=== PATIENT | male | born 1950 | race Caucasian/White ===

== ENCOUNTER → 2020-05-15 | Outpatient (CLI) | payer MEDICARE ==
--- NOTE | 2020-05-15 11:19 | CARD ---
MR#: [id number] Date of Study: 05/15/2020 Ordering Physician: SEBASTIAN CADENA, Referring Physician: SEBASTIAN CADENA Tech: Yadira Jimenez RDCS APPROVED REPORT EXAM: Two-dimensional and M-mode echocardiogram with Doppler and color Doppler. Other Information Quality : Fair INDICATION Hypertension/HCVD Edema 2D DIMENSIONS Left Atrium(2D)3.9 (1.6-4.0cm)IVSd1.3 (0.7-1.1cm) Aortic Root(2D)3.1 (2.0-3.7cm)LVDd4.4 (3.9-5.9cm) LVOT Diameter2.1 (1.8-2.4cm)PWd1.2 (0.7-1.1cm) LVDs3.4 (2.5-4.0cm)FS (%) 22.0 % SV38.7 mlLVEF(%)50.0 (>50%) Aortic Valve AoV Peak Rajesh.143.4cm/sAoV VTI30.3cm AO Peak GR.8.2mmHgLVOT Peak Rajesh.108.3cm/s LVOT VTI 26.17cmAO Mean GR.4mmHg STEPHANIA (VMAX)2.15mu7EHO (VTI)3.04cm2 Mitral Valve MV E Bmgxbtnk364.5cm/sMV DECEL YZWV126df MV A Aojzkpwz03.9cm/sE/A Ratio1.3 Pulmonary Vein S1 Irfrjrrw36.3cm/sD2 Xuqlbjjr80.2cm/s LEFT VENTRICLE The left ventricle is normal size. There is mild concentric left ventricular hypertrophy. Left ventri chaparrita systolic function is normal. The Ejection Fraction is 55-60%. There is normal LV segmental wall m otion. Transmitral Doppler flow pattern is Grade II-pseudonormal filling dynamics. RIGHT VENTRICLE The right ventricle is normal size. The right ventricular systolic function is normal. ATRIA The left atrium size is normal. The right atrium size is normal. The interatrial septum is intact wit h no evidence for an atrial septal defect or patent foramen ovale as noted on 2-D or Doppler imaging. AORTIC VALVE The aortic valve is calcified but opens well. Doppler and Color Flow revealed no significant aortic r egurgitation. There is no significant aortic valvular stenosis. MITRAL VALVE The mitral valve is normal in structure and function. There is no evidence of mitral valve prolapse. There is no mitral valve stenosis. Doppler and Color-flow revealed trace mitral regurgitation. TRICUSPID VALVE The tricuspid valve is normal in structure and function. Doppler and Color Flow revealed no tricuspid valve regurgitation noted. There is no tricuspid valve stenosis. PULMONIC VALVE The pulmonic valve is not well visualized. Doppler and Color Flow revealed no pulmonic valvular regur gitation. There is no pulmonic valvular stenosis. GREAT VESSELS The aortic root is normal in size. The ascending aorta is normal in size. The IVC was not visualized. PERICARDIAL EFFUSION There is no evidence of significant pericardial effusion. Critical Notification Critical Value: No <Conclusion> Left ventricle systolic function is normal. The Ejection Fraction is 55-60%. There is normal LV segmental wall motion. Trace mitral regurgitation. There is no evidence of significant pericardial effusion. Signed by : Hubert Florian, Electronically Approved : 05/15/2020 11:18:48
== END | disposition home or self-care (01) ==
LOC: ECHO 09:44
PROVIDERS: ATTEND Family Medicine
DX: I35.1 Nonrheumatic aortic (valve) insufficiency (principal); I51.7 Cardiomegaly; I10 Essential (primary) hypertension; R60.9 Edema, unspecified
CPT/HCPCS: 93306

== ENCOUNTER 2021-06-09 12:04 | Emergency (ER) | payer MEDICARE ==
[~2021-06-09] VITALS: Ht 182.9 cm; Wt 131.7 kg
--- NOTE | 2021-06-09 12:21 | PHYS DOC ---
Adult General Chief Complaint Chief Complaint: MECHANICAL FALL HPI HPI Patient is a 70-year-old male who presents via EMS for a fall. Onset happened approximately 30 minutes prior to arrival. Patient reports he was walking at a grocery store pushing a cart when he missed a step trying to go down a curb subsequently falling on his right side. Reports he hit his right shoulder and right anterior head. No reported loss of consciousness, patient is not on any blood thinners. States he has continued motor or sensory neuro function but does admit focal pain to right shoulder at present. (FABIEN CAPPS DO) Review of Systems Review of Systems Fourteen body systems of review of systems have been reviewed. See HPI for pertinent positives and negative responses, other contreras all other systems are negative, non-pertinent or non-contributory (FABIEN CAPPS DO) Allergies Allergies Allergies Coded Allergies Type Severity Reaction Last Updated Verified No Known Drug Allergies 06/09/21 No (FABIEN CAPPS DO) Physical Exam Physical Exam Constitutional: Pt is oriented to person, place, and time. Pt appears age-appropriate, overweight and in no acute distress. He is diaphoretic HEENT: Head: Normocephalic with mild hematoma present to right anterior forehead External ears unremarkable without powell sign Conjunctivae and EOM are normal. Pupils are equal, round, and reactive to light. Oropharynx is clear and moist. No hematomas or lacerations or abrasions to face or scalp OP clear, no blood, no malocclusion, dentition intact Nares clear, no nasal septal hematoma Midface stable Neck: C-spine midline nontender, no step-offs Cardiovascular: Normal rate, regular rhythm and normal heart sounds. Pulmonary/Chest: Effort normal and breath sounds normal. No respiratory distress. No wheezes. CTA bilaterally Abdominal: Soft and protuberant. Bowel sounds are normal. Pt exhibits no distension. There is no tenderness. Musculoskeletal: Bony tenderness present to right shoulder with concerning deformity that is closed in nature but palpable and nonanatomic compared to contralateral limb with decreased range of motion globally due to pain. Tenderness present to lateral aspect of right elbow without pain during supination or pronation Chest wall stable Pelvis stable and non-tender No vertebral TTP and spine without stepoffs Neurological: Pt is alert and oriented to person, place, and time. Moving all extremities willfully, able to wiggle all fingers and toes Alert and oriented x 3 Motor and sensory function grossly intact No saddle anesthesia Cranial nerves II through XII intact Skin: Skin is warm and dry. No lacerations. Mild abrasion noted to right anterior knee, left forearm and right wrist Psychiatric: Behavior is appropriate for situation (FABIEN CAPPS DO) Current Patient Data Vital Signs Vital Signs Date Time Temp Pulse Resp B/P (MAP) Pulse Ox O2 Delivery O2 Flow Rate FiO2 06/09/21 13:04 20 97 Room Air 06/09/21 13:14 97.9 92 159/75 Vital Signs Date Time Temp Pulse Resp B/P (MAP) Pulse Ox O2 Delivery O2 Flow Rate FiO2 06/09/21 13:14 97.9 92 18 159/75 94 Room Air Lab Results Laboratory Tests Test 06/09/21 12:40 White Blood Count 13.1 x10^3/uL Red Blood Count 4.14 x10^6/uL Hemoglobin 13.6 g/dL Hematocrit 40.6 % Mean Corpuscular Volume 98 fL Mean Corpuscular Hemoglobin 33 pg Mean Corpuscular Hemoglobin Concent 33 g/dL Red Cell Distribution Width 14.2 % Platelet Count 245 x10^3/uL Neutrophils (%) (Auto) 80 % Lymphocytes (%) (Auto) 13 % Monocytes (%) (Auto) 6 % Eosinophils (%) (Auto) 1 % Basophils (%) (Auto) 0 % Neutrophils # (Auto) 10.4 x10^3uL Lymphocytes # (Auto) 1.6 x10^3/uL Monocytes # (Auto) 0.8 x10^3/uL Eosinophils # (Auto) 0.2 x10^3/uL Basophils # (Auto) 0.0 x10^3/uL Sodium Level 140 mmol/L Potassium Level 4.1 mmol/L Chloride Level 104 mmol/L Carbon Dioxide Level 24 mmol/L Anion Gap 12 Blood Urea Nitrogen 18 mg/dL Creatinine 0.5 mg/dL Estimated GFR (Cockcroft-Gault) 163.9 Glucose Level 124 mg/dL Calcium Level 8.7 mg/dL Troponin I Quantitative < 0.017 ng/mL Current Medications Medications (Trade) Dose Ordered Sig/Radha Route PRN Reason Start Time Stop Time Status Last Admin Dose Admin Fentanyl Citrate (Fentanyl 2ml Vial) 100 mcg STK-MED ONCE .ROUTE 06/09/21 12:21 06/09/21 12:21 DC Fentanyl Citrate (Fentanyl 2ml Vial) 75 mcg 1X ONCE IVP 06/09/21 12:30 06/09/21 12:39 DC 06/09/21 13:04 (FABIEN CAPPS DO) EKG EKG EKG ordered and interpreted by myself at 1331 hrs. is sinus rhythm at 65 bpm, unremarkable intervals, no axis deviation, no acute ischemic findings, no STEMI (FABIEN CAPPS DO) Radiology/Procedures Radiology/Procedures Right elbow 3 views, right shoulder 2 views. HISTORY: Fall, right shoulder pain Right shoulder shoulder 3 views were taken of the right shoulder. There is a comminuted displaced fracture of the proximal humerus. There is displacement of the humeral head relative to the shaft of the humerus. There is comminution at the greater tuberosity. Right elbow Additional view was taken of the humerus to include the elbow in the oblique projection, an AP view was taken of the elbow. A true lateral view the elbow was not obtained. There is no obvious distal humerus or elbow fracture but the study is limited. IMPRESSION: 1. Limited views of the elbow show no definite fracture, additional views of be needed for complete evaluation. 2. Comminuted displaced proximal humerus fracture. Electronically signed by: Sky Cueva MD (06/09/2021 1:31 PM) [id number] /////////////////////// Examination: CT head and cervical spine without contrast CT head [facility] CT HEAD INDICATION: Reason: FALL TO ANTERIOR RIGHT HEAD / Spl. Instructions: / History: COMPARISON: None Available. Exposure: One or more of the following individualized dose reduction techniques were utilized for this examination: 1. Automated exposure control 2. Adjustment of the mA and/or kV according to patient size 3. Use of iterative reconstruction technique TECHNIQUE: 5 mm contiguous axial images were obtained from the skull base to the vertex in both bone and soft tissue algorithm. FINDINGS: Mild soft tissue swelling or scalp contusion identified in the right lateral frontal region. There is questionable faint hyperdensity identified in the right temporal lobe, best visualized on series 2 image 10 most likely artifact and less likely subtle subarachnoid bleed. No mass effect or midline shift. Ventricular size is appropriate. Basal cisterns are patent. No fractures identified.Byrne-white differentiation is preserved.Globes and orbit s are within normal limits. Paranasal sinuses and mastoid air cells are clear. CT CERVICAL SPINE INDICATION: Reason: FALL TO ANTERIOR RIGHT HEAD / Spl. Instructions: / History: COMPARISON: None Available. Technique: 2.5 mm contiguous axial images were obtained from the skull base through the cervicothoracic junction in both bone and soft tissue algorithm. Additional sagittal and coronal reconstructions were also performed. FINDINGS: Vertebral body height and alignment are maintained. Cervical lordosis is preserved. The lateral masses of C1 are aligned upon C2. No fractures identified. The bony canal is patent throughout. Moderate intervertebral disc height loss identified in the cervical spine throughout likely degenerative changes. The paraspinous soft tissues are unremarkable. Visualized intracranial contents are unremarkable. Lung apices are clear. IMPRESSION: 1. There is questionable faint hyperdensity identified in the right temporal lobe, most likely artifact and less likely subtle subarachnoid bleed. Follow-up CT in 6-12 hours can be considered. 2. Mild soft tissue swelling or scalp contusion identified in the right lateral frontal region. 3. No acute fracture of the cervical spine. 4. Moderate degenerative changes cervical spine. Electronically signed by: Simeon Larkin MD (06/09/2021 1:56 PM) CRAD2 (FABIEN CAPPS DO) Radiology/Procedures CT head without contrast and CTA head and neck with contrast dated 06/09/2021 Comparison: none CLINICAL INDICATION: Pain after fall Technique: Contiguous axial imaging the head was performed from skull base to vertex with out contrast administration. Subsequently, a CTA of the head and neck was acquired following the intravenous administration of 75 cc Omnipaque 350. Thin cut coronal and sagittal MIPS reconstructions and 3-D rotational reconstruction. One or more of the following individualized dose reduction techniques were utilized for this examination: 1. Automated exposure control 2. Adjustment of the mA and/or kV according to patient size 3. Use of iterative reconstruction technique. Carotid Stenosis calculations for CT, MR, and conventional angiography are based upon measurements of the distal ICA diameter in accordance with the NASCET m ethodology. Stenosis calculations for carotid ultrasound studies are derived from validated velocity criteria which are known to correlate with the NASCET methodology. FINDINGS: Study is somewhat limited due to diminished contrast bolus and mottle artifact. Aortic arch is normal in caliber. The left vertebral artery originates directly from the aortic arch. Subclavian arteries are patent. Bilateral vertebral arteries are grossly patent. The left vertebral is somewhat hypoplastic relative to the right side. No intimal flap or focal stenosis. Intradural vertebral arteries are patent. Basilar artery is well formed. Bilateral CHIN STRAP SEWER are patent. Patent posterior communicating arteries. Bilateral common carotid arteries are patent. There is moderate calcific plaque at the left carotid bifurcation resulting in mild narrowing, estimated at 40-50% stenosis. No significant narrowing on the right. The internal carotid arteries are otherwise patent to the skull base. The petrous and cavernous internal carotids are grossly patent. There is calcific plaque of the bilateral cavernous segments. Resultant mild to moderate narrowing of the bilateral cavernous and supraclinoid ICAs with estimated 50% narrowing bilaterally. The PATIENCE and MCA branches are patent. Patent anterior c ommunicating artery. No MCA branch vessel occlusion. Postcontrast imaging the brain shows no abnormal enhancement. Dural venous sinuses are grossly patent. Visualized soft tissue structures are unremarkable. Images of lung apices show mild emphysema. Bone windows show no acute findings. Multilevel spondylosis. IMPRESSION: 1. No acute abnormality. No evidence of dissection or branch vessel occlusion. 2. No evidence of hemodynamically significant stenosis or aneurysm. There is estimated 40-50% stenosis of the proximal left ICA. There is also estimated at 50% narrowing of the bilateral supraclinoid ICA. Electronically signed by: Ted Borjas MD (06/09/2021 8:40 PM) [facility] (MARKO BURNS MD) Heart Score C/O Chest Pain: No HEART Score for Chest Pain: HEART Score for Chest Pain Response (Comments) Value History Slighlty/Non-Suspicious 0 ECG Nonspecific Repolarizatio 1 Age > 65 2 Risk Factors >3 Risk Factors or Hx CAD 2 Troponin < Normal Limit 0 Total 5 Risk Factors: Risk Factors: DM, Current or recent (<one month) smoker, HTN, HLP, family history of CAD, obesity. Risk Scores: Risk Factors: DM, Current or recent (<one month) smoker, HTN, HLP, family history of CAD, obesity. (FABIEN CAPPS DO) Course & Med Decision Making Course & Med Decision Making Vitals stable. HPI, physical examination and comprehensive ER work-up concerning for closed right humeral fracture and suspect subarachnoid bleed versus right temporal hematoma. Due to COVID-[address] patient in hospital for admission. As such, frequent neuro checks were performed while patient was in ER with no change in mentation. Patient's right upper extremity was put in a Velcro immobilizer with instructions for close outpatient follow-up. Patient pending repeat CT head scan approximately 6 hours after initial to analyze potential subarachnoid versus artifact seen on initial scan. Comprehensive signout given to off going physician. Please refer to their documentation regarding future care of patient Critical Care Time This patient required critical care. Due to the fact that the patient required a significant amount of one on one physician - patient contact time, ordering and review of studies, arranging urgent treatment with development of a management plan, evaluation of patients response to treatment with frequent reassessments, and discussions with other providers this patient required 35 minutes of critical care time. Critical care time was indicated due to the inherent instability and/or potential for instability in this patient. The critical care time that is allocated to this patient is above and beyond any time spent on any other billable procedures performed on this patient. (FABIEN CAPPS DO) Course & Med Decision Making Patient care handed off to me at checkout pending imaging. Repeat head CT/CTA o f the head and neck without acute hemorrhage or mass. Elbow with findings suspicious for radial neck fracture. Comminuted displaced proximal humerus fracture. Patient placed in a double sugar tong splint and shoulder immobilizer. Patient alert and oriented in no acute distress. Vital signs normal. Pain controlled. Discussed all findings with family and recommended pain management at home. Given contact information for [facility] orthopedic group and advised to call very first thing in the morning to set up a immediate follow-up visit for surgical evaluation and treatment plans. Advised to follow-up with primary care physician as well. Gave strict return precautions to the emergency department. Family grateful, verbalized understanding and agreed with plan of discharge. (MARKO BURNS MD) Dragon Disclaimer Dragon Disclaimer This electronic medical record was generated, in whole or in part, using a voice recognition dictation system. (FABIEN CAPPS DO) Departure Departure: Impression: Primary Impression: Closed right humeral fracture Additional Impressions: Closed head injury without loss of consciousness Radial neck fracture Disposition: HOME / SELF CARE / HOMELESS Condition: STABLE Referrals: SEBASTIAN CADENA MD (PCP) AKOSUA VAZQUEZ MD Patient Instructions: Head Injury, Adult, Humerus Fracture, Treated with Immobilization Additional Instructions: As discussed prior to ER departure, you were seen for a fall and subsequently suffered a right arm fracture and injury to your head. Tomorrow, you need to contact Dr. Vazquez whose information is attached as he is the bone orthopedic surgeon who will help you with your right arm. In addition, please use the information below to contact Dr. Preston tomorrow as he is the neurosurgeon whom you need to contact and discussed need for close outpatient follow-up. Please take prescribed pain medications as instructed for severe pain as needed. If any concerning signs or symptoms present prior to outpatient follow-up please do not hesitate to come back for repeat evaluation. It was a pleasure to take care of you and I wish you a speedy recovery [facility] - Kary Mckeon MD Address: [address] [place] [address] [address], [place] [address] Please call [facility] first thing in the morning at [phone] to discuss your ED visit and set up a follow-up appointment as soon as possible for orthopedic evaluation and treatment recommendations for your broken arm. Please come back to the emergency department immediately with new or concerning symptoms as discussed. Scripts Hydrocodone Bit/Acetaminophen (HYDROCODONE-APAP 5-325 ) 1 Each Tablet 1 TAB PO PRN Q6HRS PRN for fracture pain for 7 Days, #28 TAB 0 Refills Prov: MARKO BURNS MD 06/09/21 Problem Qualifiers FABIEN CAPPS DO Jun 09, 2021 12:21 MARKO BURNS MD Jun 09, 2021 22:58
[2021-06-09 13:21] LABS: BASO % 0 % (0-3); EOS # 0.2 x10^3/uL (0.0-0.7); EOS % 1 % (0-3); HEMATOCRIT 40.6 % (39.0-53.0); HEMOGLOBIN 13.6 g/dL (13.0-17.5); LYMPH # 1.6 x10^3/uL (1.0-4.8); LYMPH % 13 % (24-48); MEAN CORPUSCULAR HEMOGLOBIN 33 pg (25-35); MEAN CORPUSCULAR HGB CONC 33 g/dL (31-37); MEAN CORPUSCULAR VOLUME 98 fL (79-100); MONO # 0.8 x10^3/uL (0.0-1.1); MONO % 6 % (0-9); NEUT # 10.4 x10^3uL (1.8-7.7); NEUT % 80 % (31-73); PLATELET COUNT 245 x10^3/uL (140-400); RED BLOOD COUNT 4.14 x10^6/uL (4.30-5.70); RED CELL DISTRIBUTION WIDTH 14.2 % (11.5-14.5); WHITE BLOOD COUNT 13.1 x10^3/uL (4.0-11.0)
[2021-06-09 13:24] LABS: CALCIUM 8.7 mg/dL (8.5-10.1); CREATININE 0.5 mg/dL (0.7-1.3); GFR 163.9; POTASSIUM 4.1 mmol/L (3.5-5.1)
--- NOTE | 2021-06-09 13:33 | RAD ---
Right elbow 3 views, right shoulder 2 views. HISTORY: Fall, right shoulder pain Right shoulder shoulder 3 views were taken of the right shoulder. There is a comminuted displaced fracture of the proximal hu merus. There is displacement of the humeral head relative to the shaft of the humerus. There is commi nution at the greater tuberosity. Right elbow Additional view was taken of the humerus to include the elbow in the oblique projection, an AP view w as taken of the elbow. A true lateral view the elbow was not obtained. There is no obvious distal hum erus or elbow fracture but the study is limited. IMPRESSION: 1. Limited views of the elbow show no definite fracture, additional views of be needed for complete e valuation. 2. Comminuted displaced proximal humerus fracture. Electronically signed by: Sky Cueva MD (06/09/2021 1:31 PM) [id number]
--- NOTE | 2021-06-09 13:34 | RAD ---
AP chest. HISTORY: Fall, right shoulder pain AP view was taken of the chest. Lungs are clear. Heart is normal in size. Again noted is a proximal r ight humerus fracture. There is no pneumothorax or pleural effusion. IMPRESSION: 1. No acute infiltrates. Electronically signed by: Sky Cueva MD (06/09/2021 1:32 PM) [id number]
--- NOTE | 2021-06-09 13:59 | RAD ---
Examination: CT head and cervical spine without contrast CT head [facility] CT HEAD INDICATION: Reason: FALL TO ANTERIOR RIGHT HEAD / Spl. Instructions: / History: COMPARISON: None Available. Exposure: One or more of the following individualized dose reduction techniques were utilized for thi s examination: 1. Automated exposure control 2. Adjustment of the mA and/or kV according to patient size 3. Use of iterative reconstruction technique TECHNIQUE: 5 mm contiguous axial images were obtained from the skull base to the vertex in both bone and soft tissue algorithm. FINDINGS: Mild soft tissue swelling or scalp contusion identified in the right lateral frontal region. There is questionable faint hyperdensity identified in the right temporal lobe, best visualized on series 2 i mage 10 most likely artifact and less likely subtle subarachnoid bleed. No mass effect or midline shift. Ventricular size is appropriate. Basal cisterns are patent. No fractures identified.Byrne-white differentiation is preserved.Globes and orbits are within normal l imits. Paranasal sinuses and mastoid air cells are clear. CT CERVICAL SPINE INDICATION: Reason: FALL TO ANTERIOR RIGHT HEAD / Spl. Instructions: / History: COMPARISON: None Available. Technique: 2.5 mm contiguous axial images were obtained from the skull base through the cervicothorac ic junction in both bone and soft tissue algorithm. Additional sagittal and coronal reconstructions were also performed. FINDINGS: Vertebral body height and alignment are maintained. Cervical lordosis is preserved. The l ateral masses of C1 are aligned upon C2. No fractures identified. The bony canal is patent throughout. Moderate intervertebral disc height loss identified in the cervical spine throughout likely degenerat aletha changes. The paraspinous soft tissues are unremarkable. Visualized intracranial contents are unremarkable. L moe apices are clear. IMPRESSION: 1. There is questionable faint hyperdensity identified in the right temporal lobe, most likely artif act and less likely subtle subarachnoid bleed. Follow-up CT in 6-12 hours can be considered. 2. Mild soft tissue swelling or scalp contusion identified in the right lateral frontal region. 3. No acute fracture of the cervical spine. 4. Moderate degenerative changes cervical spine. Electronically signed by: Simeon Larkin MD (06/09/2021 1:56 PM) [id number]
[2021-06-09] MEDS ORDERED: HYDROmorphone PF 1 MG/ML DISP.SYRIN IVP ONE (14:30)
[2021-06-09] MEDS ORDERED: oxyCODONE/APAP 5/325 1 TAB TABLET PO ONE ×2 (16:00→23:30)
--- NOTE | 2021-06-09 18:00 | EKG ---
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
[2021-06-09] MEDS ORDERED: IV RINGERS SOLUTION,LACTATED 1,000 ML IV ONE (18:30)
[2021-06-09] MEDS ORDERED: IOHEXOL 350 MG/ML 100 ML VIAL. IV ONE (18:30)
[2021-06-09] MEDS ORDERED: MORPHINE SULFATE 2 MG/ML DISP.SYRIN. IV ONE ×2 (18:30→23:30)
[2021-06-09] MEDS ORDERED: ONDANSETRON PF 4 MG/2 ML VIAL. IVP ONE (18:30)
[2021-06-09] MEDS ORDERED: MORPHINE SULFATE 4 MG/ML DISP.SYRIN. IV ONE ×2 (18:30→23:30)
[2021-06-09] MEDS ORDERED: CONTRAST GIVEN. MC PRN (19:00)
--- NOTE | 2021-06-09 20:43 | RAD ---
CT head without contrast and CTA head and neck with contrast dated 06/09/2021 Comparison: none CLINICAL INDICATION: Pain after fall Technique: Contiguous axial imaging the head was performed from skull base to vertex without contrast administra tion. Subsequently, a CTA of the head and neck was acquired following the intravenous administration of 75 cc Omnipaque 350. Thin cut coronal and sagittal MIPS reconstructions and 3-D rotational reconst ruction. One or more of the following individualized dose reduction techniques were utilized for this examinat ion: 1. Automated exposure control 2. Adjustment of the mA and/or kV according to patient size 3. Use of iterative reconstruction technique. Carotid Stenosis calculations for CT, MR, and conventional angiography are based upon measurements of the distal ICA diameter in accordance with the NASCET methodology. Stenosis calculations for carotid ultrasound studies are derived from validated velocity criteria which are known to correlate with th e NASCET methodology. FINDINGS: Study is somewhat limited due to diminished contrast bolus and mottle artifact. Aortic arch is normal in caliber. The left vertebral artery originates directly from the aortic arch. Subclavian arteries are patent. Bilateral vertebral arteries are grossly patent. The left vertebral is somewhat hypoplastic relative to the right side. No intimal flap or focal stenosis. Intradural yulia tebral arteries are patent. Basilar artery is well formed. Bilateral [employer] are patent. Patent posterior communicating arteries. Bilateral common carotid arteries are patent. There is moderate calcific plaque at the left carotid b ifurcation resulting in mild narrowing, estimated at 40-50% stenosis. No significant narrowing on the right. The internal carotid arteries are otherwise patent to the skull base. The petrous and cavernous internal carotids are grossly patent. There is calcific plaque of the bilat eral cavernous segments. Resultant mild to moderate narrowing of the bilateral cavernous and supracli noid ICAs with estimated 50% narrowing bilaterally. The PATIENCE and MCA branches are patent. Patent anter ior communicating artery. No MCA branch vessel occlusion. Postcontrast imaging the brain shows no abnormal enhancement. Dural venous sinuses are grossly patent . Visualized soft tissue structures are unremarkable. Images of lung apices show mild emphysema. Bone windows show no acute findings. Multilevel spondylosis. IMPRESSION: 1. No acute abnormality. No evidence of dissection or branch vessel occlusion. 2. No evidence of hemodynamically significant stenosis or aneurysm. There is estimated 40-50% stenosi s of the proximal left ICA. There is also estimated at 50% narrowing of the bilateral supraclinoid IC A. Electronically signed by: Ted Borjas MD (06/09/2021 8:40 PM) LUISA
--- NOTE | 2021-06-09 22:23 | RAD ---
3 views of right elbow dated 06/09/2021. No comparison available. CLINICAL INDICATION: Pain. FINDINGS: 3 views the right elbow are limited due to nonstandard positioning. There is a zone of radiolucency t hrough the radial neck seen on one view which could represent acute or subacute fracture. Mild fat pa d elevation suggesting joint effusion. Distal humerus is intact. Mild degenerative changes. IMPRESSION: 1. Findings suspicious for radial neck fracture, age indeterminate. 2. Suspected small joint effusion. 3. Mild degenerative changes. Electronically signed by: Ted Borjas MD (06/09/2021 10:21 PM) LUISA
[2021-06-09] MEDS ORDERED: HYDR-2155 PO (22:57)
[2021-06-09] MEDS ORDERED: DIPH,PERTUSS(ACELL),TET VAC/PF 0.5 ML SYRINGE. VAX IM ONE ×2 (23:09→23:15)
[2021-06-09 23:21] VITALS: BP 139/61
== END 2021-06-09 23:24 | disposition home or self-care (01) ==
LOC: ER 12:04
DX: S42.201A Unspecified fracture of upper end of right humerus, initial encounter for closed fracture (principal); S52.131A Displaced fracture of neck of right radius, initial encounter for closed fracture; S00.83XA Contusion of other part of head, initial encounter; Z20.822 Contact with and (suspected) exposure to COVID-19; W18.39XA Other fall on same level, initial encounter; Y93.01 Activity, walking, marching and hiking; Y92.89 Other specified places as the place of occurrence of the external cause; Y99.8 Other external cause status
CPT/HCPCS: 29105; 36415; 70450; 70496; 70498; 71045; 72125; 73030; 73070; 73080; 80048; 84484; 85025; 87426; 90471; 90715; 93005; 96361; 96374; 96375; 96376; 99285; C9803; J1170; J2270; J2405; J3010; J7120; Q9967; U0003

== ENCOUNTER → 2021-09-02 | Outpatient (CLI) | payer MEDICARE ==
[~2021-09-02] MED LIST: HYDR-2155 PO
--- NOTE | 2021-09-02 17:22 | RAD ---
EXAM: RIGHT SHOULDER 3 VIEWS. HISTORY: Reverse total shoulder arthroplasty. COMPARISON: None. FINDINGS: There is a reverse right total shoulder arthroplasty. The humeral component is dislocated a nteriorly. There is extensive developing heterotopic ossification along the posterior and lateral asp ect of the joint capsule. No fractures are identified. There is mild acromioclavicular osteoarthritis . IMPRESSION: 1. 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 2. 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 Electronically signed by: Ashanti Carlos MD (09/02/2021 5:19 PM) [id number]
== END ==
LOC: RAD 16:17
PROVIDERS: ATTEND Physician Assistant
DX: M19.011 Primary osteoarthritis, right shoulder (principal); M25.811 Other specified joint disorders, right shoulder; Z96.611 Presence of right artificial shoulder joint
CPT/HCPCS: 73030